=== PATIENT | female | born 1955 | race Caucasian/White ===

== ENCOUNTER → 2016-04-25 | Outpatient (CLI) | payer MEDICARE, BC ==
[~2016-04-25] MED LIST: CYCLOSPORINE25 M1; HALCION0.25 MG PO; IMURAN50 MG PO; LEVOTHYROXINE0.05 MG PO; NORVASC2.5 MG PO
== END ==
LOC: LAB 08:51
DX: Z94.4 Liver transplant status (principal); Z79.899 Other long term (current) drug therapy

== ENCOUNTER → 2016-07-19 | Outpatient (CLI) | payer MEDICARE, BC ==
[2013-04-14 09:35] VITALS: BP 142/68
== END ==
LOC: RAD 12:41
DX: M85.9 Disorder of bone density and structure, unspecified (principal); Z13.820 Encounter for screening for osteoporosis; M81.0 Age-related osteoporosis without current pathological fracture

== ENCOUNTER → 2016-11-23 | Outpatient (CLI) | payer MEDICARE, BC ==
[2013-04-14 09:35] VITALS: BP 142/68
== END ==
LOC: LAB 08:34
DX: M81.0 Age-related osteoporosis without current pathological fracture (principal); I10 Essential (primary) hypertension; E03.4 Atrophy of thyroid (acquired); K66.0 Peritoneal adhesions (postprocedural) (postinfection)

== ENCOUNTER → 2017-01-17 | Outpatient (CLI) | payer MEDICARE, BC ==
[2013-04-14 09:35] VITALS: BP 142/68
[2017-01-17 09:03] LABS: EOS # 0.1 (0.04-0.40); EOS % 1.7 % (1.0-5.0); HEMATOCRIT 33.5 % (37.0-47.0); MEAN CELL VOLUME 99 fl (78-100); MEAN CORPUSCULAR HGB CONC 36 g/dL (33-37); MONO # 0.3 (0.20-0.80); NEU # 1.6 (1.40-6.50); PLATELET COUNT 170 K/mm3 (130-400); RED BLOOD COUNT 3.37 M/mm3 (4.10-5.30); RED CELL DISTRIBUTION WIDTH 12.4 % (11.5-14.5)
[2017-01-17 09:29] LABS: ALBUMIN 3.9 g/dL (3.5-5.0); BUN/CREATININE RATIO 21.6 (6.0-26.0); CALCIUM 9.7 mg/dL (8.4-10.2); TOTAL PROTEIN 7.7 g/dL (6.3-8.2)
[2017-01-17 09:43] LABS: MEAN CORPUSCULAR HEMOGLOBIN 36 pg (27-31)
== END ==
LOC: LAB 08:49
PROVIDERS: Nurse Practitioner Family
DX: Z94.4 Liver transplant status (principal); D89.9 Disorder involving the immune mechanism, unspecified

== ENCOUNTER → 2017-05-04 | Outpatient (CLI) | payer MEDICARE, BC ==
[~2017-05-04] VITALS: Ht 154.9 cm; Wt 47.3 kg
[~2017-05-04] MED LIST changes: +NEURONTIN300 MG/CAP; +NORCO 325 MG-7.1 TA1 PO; +NORVASC 5MG5 MG/TAB PO
[2017-05-04 11:34] LABS: EOS % 0.7 % (1.0-5.0); HEMATOCRIT 35.4 % (37.0-47.0); HEMOGLOBIN 12.1 g/dL (12.5-16.0); MEAN CELL VOLUME 101 fl (78-100); MEAN CORPUSCULAR HEMOGLOBIN 35 pg (27-31); MEAN CORPUSCULAR HGB CONC 34 g/dL (33-37); MEAN PLATELET VOLUME 10.2 fl (7.4-10.4); MONO # 0.3 (0.20-0.80); PLATELET COUNT 140 K/mm3 (130-400); RED BLOOD COUNT 3.51 M/mm3 (4.10-5.30); RED CELL DISTRIBUTION WIDTH 13.3 % (11.5-14.5)
[2017-05-04 11:44] VITALS: BP 120/69
[2017-05-04 11:46] LABS: BUN/CREATININE RATIO 18.2 (6.0-26.0); CALCIUM 9.2 mg/dL (8.4-10.2); POTASSIUM 4.2 mmol/L (3.6-5.0); TOTAL BILIRUBIN 0.7 mg/dL (0.2-1.3); TOTAL PROTEIN 7.8 g/dL (6.3-8.2)
[2017-05-04 11:54] LABS: LYMPH# 0.7 (1.50-4.00)
[2017-05-04 12:33] VITALS: BP 106/51
== END ==
LOC: AMSURD 11:09
PROVIDERS: Physician Assistant
DX: E86.0 Dehydration (principal); R05 Cough
CPT/HCPCS: J7030

== ENCOUNTER → 2017-06-28 | Outpatient (CLI) | payer MEDICARE, BC ==
[2017-05-04 12:33] VITALS: BP 106/51
[2017-06-28 09:37] LABS: EOS # 0.1 (0.04-0.40); EOS % 3.8 % (1.0-5.0); HEMOGLOBIN 11.4 g/dL (12.5-16.0); LYMPH# 0.8 (1.50-4.00); MEAN CELL VOLUME 103 fl (78-100); MEAN CORPUSCULAR HGB CONC 35 g/dL (33-37); MEAN PLATELET VOLUME 10.1 fl (7.4-10.4); MONO # 0.2 (0.20-0.80); NEU # 1.4 (1.40-6.50); PLATELET COUNT 158 K/mm3 (130-400); RED BLOOD COUNT 3.21 M/mm3 (4.10-5.30); RED CELL DISTRIBUTION WIDTH 13.1 % (11.5-14.5); WHITE BLOOD COUNT 2.6 K/mm3 (4.8-10.8)
[2017-06-28 09:45] LABS: MEAN CORPUSCULAR HEMOGLOBIN 36 pg (27-31)
[2017-06-28 09:51] LABS: BUN/CREATININE RATIO 21.9 (6.0-26.0); CALCIUM 9.2 mg/dL (8.4-10.2); POTASSIUM 3.6 mmol/L (3.6-5.0); TOTAL BILIRUBIN 0.8 mg/dL (0.2-1.3)
[2017-06-28 10:37] LABS: URINE APPEARANCE CLEAR; URINE COLOR YELLOW; URINE PROTEIN(semi-quant) 1+ mg/dL (NEGATIVE)
[2017-06-28 10:38] LABS: URINE BILIRUBIN NEGATIVE (NEGATIVE); URINE BLOOD NEGATIVE (NEGATIVE); URINE GLUCOSE NEGATIVE (NEGATIVE); URINE KETONE NEGATIVE (NEGATIVE); URINE LEUKOCYTE ESTERASE NEGATIVE (NEGATIVE); URINE MUCUS PRESENT (NOT PRESENT); URINE NITRATE NEGATIVE (NEGATIVE); URINE UROBILINOGEN NORMAL (NORMAL)
[2017-07-01 08:46] LABS: CYCLOSPORIN ASSAY AMS
== END ==
LOC: LAB 09:14
DX: E74.9 Disorder of carbohydrate metabolism, unspecified (principal); R53.83 Other fatigue; Z13.220 Encounter for screening for lipoid disorders; Z86.39 Personal history of other endocrine, nutritional and metabolic disease; Z79.899 Other long term (current) drug therapy; Z94.4 Liver transplant status

== ENCOUNTER → 2018-01-16 | Outpatient (CLI) | payer MEDICARE, BC ==
[2017-05-04 12:33] VITALS: BP 106/51
[2018-01-16 09:19] LABS: EOS # 0.1 (0.04-0.40); EOS % 2.7 % (1.0-5.0); HEMATOCRIT 35.1 % (37.0-47.0); HEMOGLOBIN 12.2 g/dL (12.5-16.0); LYMPH# 1.1 (1.50-4.00); MEAN CELL VOLUME 98 fl (78-100); MEAN CORPUSCULAR HEMOGLOBIN 34 pg (27-31); MEAN CORPUSCULAR HGB CONC 35 g/dL (33-37); MEAN PLATELET VOLUME 10.2 fl (7.4-10.4); MONO # 0.4 (0.20-0.80); NEU # 2.4 (1.40-6.50); PLATELET COUNT 173 K/mm3 (130-400); RED BLOOD COUNT 3.58 M/mm3 (4.10-5.30); RED CELL DISTRIBUTION WIDTH 11.4 % (11.5-14.5); WHITE BLOOD COUNT 4.1 K/mm3 (4.8-10.8)
[2018-01-16 09:38] LABS: ALBUMIN 4.1 g/dL (3.5-5.0); CALCIUM 9.4 mg/dL (8.4-10.2); POTASSIUM 3.8 mmol/L (3.6-5.0); TOTAL BILIRUBIN 0.9 mg/dL (0.2-1.3); TOTAL PROTEIN 7.9 g/dL (6.3-8.2)
[2018-01-16 10:22] LABS: URINE APPEARANCE CLEAR; URINE BILIRUBIN NEGATIVE (NEGATIVE); URINE BLOOD 50 ery/uL (NEGATIVE); URINE COLOR YELLOW; URINE GLUCOSE NEGATIVE (NEGATIVE); URINE KETONE NEGATIVE (NEGATIVE); URINE LEUKOCYTE ESTERASE NEGATIVE (NEGATIVE); URINE MUCUS PRESENT (NOT PRESENT); URINE NITRATE NEGATIVE (NEGATIVE); URINE PROTEIN(semi-quant) 1+ mg/dL (NEGATIVE); URINE UROBILINOGEN NORMAL (NORMAL)
[2018-01-18 07:42] LABS: CYCLOSPORIN ASSAY AMS
== END ==
LOC: LAB 08:59
PROVIDERS: Internal Medicine Gastroenterology
DX: M85.9 Disorder of bone density and structure, unspecified (principal); Z79.899 Other long term (current) drug therapy; Z94.4 Liver transplant status

== ENCOUNTER 2018-04-13 08:48 | Emergency (ER) | payer MEDICARE, BC ==
[~2018-04-13] VITALS: Ht 154.9 cm; Wt 46.4 kg
[2018-04-13] MEDS ORDERED: NEURONTIN300 M1 PO (09:36)
[2018-04-13 09:39] LABS: HEMATOCRIT 36.8 % (37.0-47.0); HEMOGLOBIN 12.4 g/dL (12.5-16.0); MEAN CELL VOLUME 93 fl (78-100); MEAN CORPUSCULAR HEMOGLOBIN 32 pg (27-31); MEAN CORPUSCULAR HGB CONC 34 g/dL (33-37); MEAN PLATELET VOLUME 11.1 fl (7.4-10.4); PLATELET COUNT 177 K/mm3 (130-400); RED BLOOD COUNT 3.94 M/mm3 (4.10-5.30); RED CELL DISTRIBUTION WIDTH 12.3 % (11.5-14.5); WHITE BLOOD COUNT 6.2 K/mm3 (4.8-10.8)
[2018-04-13 09:48] LABS: ALBUMIN 4.2 g/dL (3.5-5.0); CALCIUM 9.4 mg/dL (8.4-10.2); POTASSIUM 3.3 mmol/L (3.6-5.0); TOTAL BILIRUBIN 0.8 mg/dL (0.2-1.3); TOTAL PROTEIN 8.1 g/dL (6.3-8.2)
[2018-04-13 10:06] LABS: LYMPHOCYTE 6 % (20-51); MONOCYTE 4 % (3-10); NEUTROPHILS 90 % (42-75)
[2018-04-13 11:18] LABS: LIPASE 233 U/L (23-300)
[2018-04-13 13:33] LABS: URINE APPEARANCE CLEAR; URINE COLOR YELLOW
[2018-04-13 13:34] LABS: URINE BILIRUBIN NEGATIVE (NEGATIVE); URINE BLOOD TRACE (NEGATIVE); URINE GLUCOSE NEGATIVE (NEGATIVE); URINE KETONE NEGATIVE (NEGATIVE); URINE LEUKOCYTE ESTERASE NEGATIVE (NEGATIVE); URINE NITRATE NEGATIVE (NEGATIVE); URINE PROTEIN(semi-quant) 1+ mg/dL (NEGATIVE); URINE UROBILINOGEN NORMAL (NORMAL)
[2018-04-13] MEDS ORDERED: ZOFRAN ODT4 MG PO (16:05)
[2018-04-13 16:12] VITALS: BP 127/52
== END 2018-04-13 16:16 | disposition home or self-care (01) ==
LOC: ED 08:48
PROVIDERS: Family Medicine
DX: A08.4 Viral intestinal infection, unspecified (principal); E86.9 Volume depletion, unspecified; K51.90 Ulcerative colitis, unspecified, without complications; K74.60 Unspecified cirrhosis of liver; E03.9 Hypothyroidism, unspecified; I10 Essential (primary) hypertension; Z94.4 Liver transplant status; Z90.49 Acquired absence of other specified parts of digestive tract
CPT/HCPCS: J2405; J3480; J7030

== ENCOUNTER → 2018-06-11 | Outpatient (CLI) | payer MEDICARE, BC ==
[~2018-06-11] MED LIST changes: +NEURONTIN300 M1 PO; +ZOFRAN ODT4 MG PO
[2018-06-11 09:17] LABS: CALCIUM 9.3 mg/dL (8.4-10.2); POTASSIUM 3.9 mmol/L (3.6-5.0); TOTAL BILIRUBIN 0.6 mg/dL (0.2-1.3); TOTAL PROTEIN 7.7 g/dL (6.3-8.2)
[2018-06-11 11:20] LABS: HEMATOCRIT 33.9 % (37.0-47.0); HEMOGLOBIN 11.2 g/dL (12.5-16.0); LYMPHOCYTE 39 % (20-51); MEAN CELL VOLUME 95 fl (78-100); MEAN CORPUSCULAR HEMOGLOBIN 32 pg (27-31); MEAN CORPUSCULAR HGB CONC 33 g/dL (33-37); MONOCYTE 9 % (3-10); NEUTROPHILS 50 % (42-75); PLATELET COUNT 195 K/mm3 (130-400); RED BLOOD COUNT 3.56 M/mm3 (4.10-5.30); RED CELL DISTRIBUTION WIDTH 12.5 % (11.5-14.5); WHITE BLOOD COUNT 3.8 K/mm3 (4.8-10.8)
== END ==
LOC: LAB 08:33
PROVIDERS: Family Medicine
DX: Z94.4 Liver transplant status (principal); Z79.899 Other long term (current) drug therapy

== ENCOUNTER 2018-08-17 19:00 | Observation (INO) | payer MEDICARE, BC ==
[~2018-08-17] VITALS: Ht 154.9 cm; Wt 45.2 kg
[2018-08-17] MEDS ORDERED: NEORAL25 MG PO (19:19)
[2018-08-17] MEDS ORDERED: HYDROCODONE-AC118 ML PO (19:21)
[2018-08-17 19:55] LABS: EOS # 0.2 (0.04-0.40); EOS % 2.9 % (1.0-5.0); HEMATOCRIT 32.7 % (37.0-47.0); LYMPH# 1.9 (1.50-4.00); MEAN CELL VOLUME 92 fl (78-100); MEAN CORPUSCULAR HEMOGLOBIN 31 pg (27-31); MEAN CORPUSCULAR HGB CONC 34 g/dL (33-37); MEAN PLATELET VOLUME 10.4 fl (7.4-10.4); MONO # 0.7 (0.20-0.80); NEU # 2.9 (1.40-6.50); PLATELET COUNT 175 K/mm3 (130-400); RED BLOOD COUNT 3.54 M/mm3 (4.10-5.30); RED CELL DISTRIBUTION WIDTH 12.4 % (11.5-14.5); WHITE BLOOD COUNT 5.6 K/mm3 (4.8-10.8)
[2018-08-17 20:00] LABS: URINE APPEARANCE CLEAR; URINE BILIRUBIN NEGATIVE (NEGATIVE); URINE BLOOD NEGATIVE (NEGATIVE); URINE COLOR STRAW; URINE GLUCOSE NEGATIVE (NEGATIVE); URINE KETONE NEGATIVE (NEGATIVE); URINE LEUKOCYTE ESTERASE NEGATIVE (NEGATIVE); URINE NITRATE NEGATIVE (NEGATIVE); URINE PROTEIN(semi-quant) NEGATIVE (NEGATIVE); URINE UROBILINOGEN NORMAL (NORMAL); URINE WBC 0-1 /hpf (0-3)
[2018-08-17 20:11] LABS: ALBUMIN 3.8 g/dL (3.4-4.8); CALCIUM 9.3 mg/dL (8.3-10.5); POTASSIUM 3.6 mmol/L (3.5-5.1); TOTAL BILIRUBIN 0.6 mg/dL (0.2-1.2); TOTAL PROTEIN 7.4 g/dL (6.2-8.1)
[2018-08-18] VITALS: BP 133/66
[2018-08-18 03:37] VITALS: BP 136/81
[2018-08-18 06:34] VITALS: BP 127/80
[2018-08-18 09:29] LABS: HEMATOCRIT 35.6 % (37.0-47.0); HEMOGLOBIN 11.8 g/dL (12.5-16.0); MEAN CELL VOLUME 94 fl (78-100); MEAN CORPUSCULAR HEMOGLOBIN 31 pg (27-31); MEAN CORPUSCULAR HGB CONC 33 g/dL (33-37); MEAN PLATELET VOLUME 10.6 fl (7.4-10.4); PLATELET COUNT 175 K/mm3 (130-400); RED CELL DISTRIBUTION WIDTH 12.7 % (11.5-14.5); WHITE BLOOD COUNT 6.5 K/mm3 (4.8-10.8)
[2018-08-18 09:40] LABS: LYMPHOCYTE 7 % (20-51); MONOCYTE 6 % (3-10); NEUTROPHILS 87 % (42-75)
[2018-08-18 09:56] LABS: ALBUMIN 3.3 g/dL (3.4-4.8); TOTAL BILIRUBIN 0.8 mg/dL (0.2-1.2); TOTAL PROTEIN 6.7 g/dL (6.2-8.1)
[2018-08-18 11:35] VITALS: BP 120/68
[2018-08-18 15:15] VITALS: BP 118/70
[2018-08-18] MEDS ORDERED: HYDROCODON-ACET15 ML PO (16:18)
[2018-08-18 19:34] VITALS: BP 133/66
== END 2018-08-18 17:36 | disposition home or self-care (01) ==
LOC: ED 19:00 → MED/SURG 08-18 00:15
PROVIDERS: ADMIT Family Medicine
DX: R10.32 Left lower quadrant pain (principal); Z90.49 Acquired absence of other specified parts of digestive tract; Z87.19 Personal history of other diseases of the digestive system
CPT/HCPCS: G0378; J3010; J7030

== ENCOUNTER → 2019-01-08 | Outpatient (CLI) | payer MEDICARE, BC ==
[~2019-01-08] MED LIST changes: +HYDROCODON-ACET15 ML PO; +HYDROCODONE-AC118 ML PO; +NEORAL25 MG PO
== END ==
LOC: RAD 13:01
DX: Z13.820 Encounter for screening for osteoporosis (principal)

== ENCOUNTER → 2019-01-08 | Outpatient (CLI) | payer MEDICARE, BC | LOC: MAMMO 12:50 | DX: Z12.31 Encounter for screening mammogram for malignant neoplasm of breast (principal) ==

== ENCOUNTER → 2020-09-08 | Outpatient (CLI) | payer MEDICARE, BC | LOC: MAMMO 13:36 | DX: Z12.31 Encounter for screening mammogram for malignant neoplasm of breast (principal); I10 Essential (primary) hypertension; M81.0 Age-related osteoporosis without current pathological fracture; R10.9 Unspecified abdominal pain; E03.9 Hypothyroidism, unspecified; Z94.4 Liver transplant status ==